=== PATIENT | female | born 1970 | race Hispanic/Latino ===

== ENCOUNTER 2024-04-10 08:32 | Outpatient (CLI) | payer OTHER | END 2024-04-10 08:33 | disposition home or self-care (01) | LOC: CSHSLEEP 08:32 | PROVIDERS: ATTEND Internal Medicine | DX: G47.33 Obstructive sleep apnea (adult) (pediatric) (principal); R53.83 Other fatigue; R06.83 Snoring | CPT/HCPCS: 95800 ==